=== PATIENT | male | born 1980 | race Caucasian/White ===

== ENCOUNTER → 2016-12-26 | Outpatient (CLI) | payer BC ==
--- NOTE | 2016-12-26 13:53 | XR ---
2 view abdomen HISTORY: Constipation 2 views of the abdomen on 3 images. 2 views the abdomen on 3 images There is a spinal curvature. No bowel obstruction or pneumoperitoneum. Lung bases are clear. IMPRESSION: No acute abnormality.
== END ==
LOC: RADXRMAIN 13:06
PROVIDERS: ATTEND Pediatrics
DX: K59.00 Constipation, unspecified (principal)
CPT/HCPCS: 74020

== ENCOUNTER 2017-02-04 08:13 | Day surgery (SDC) | payer BC ==
[2017-02-04] MEDS ORDERED: LACTATED RINGERS 1,000 ML IV ONE (08:57)
[2017-02-04 09:05] VITALS: RESP 16; TEMP 97.7
[2017-02-04] MEDS ORDERED: PROPOFOL 10 MG/ML 20 ML VIAL IV ONE (09:19)
[2017-02-04] MEDS ORDERED: LIDOCAINE 1% INJ 10MG/ML (20 ML MDV) ONE (09:19)
--- NOTE | 2017-02-04 09:50 | P.PCN ---
Date of Procedure: 02/04/17 Procedure(s) Performed: Procedure: Total colonoscopy. Preoperative diagnosis: Change in bowel habits and intermittent rectal bleeding. Postoperative diagnosis: Exam within normal limits. Preparation: HalfLytely prep. Sedation: Was provided by anesthesia. Brief clinical history: The patient is a 56-year-old male who I have evaluated in the office regarding changes in his stools and intermittent rectal bleeding that he has had over the last year or so. He has frequent flat stools. No extraintestinal manifestations of inflammatory bowel disease. No family history of colon cancer at a young age. No definite dietary triggers. This would be his first colonoscopy. Procedure: With the patient on his left lateral decubitus position and after informed consent and adequate sedation, the perianal area was inspected and it did not show any fissures or fistulas. There were no masses felt on digital rectal examination. The Olympus CFQ 160L video colonoscope was then inserted in the rectum in the usual fashion and advanced to the cecum. The mucosa appeared healthy. No polyps or tumors were seen or any obvious diverticular disease. I retroflexed endoscope in the rectum before the endoscope was withdrawn. Low-grade internal hemorrhoids were noted but there was no bleeding. The patient tolerated the procedure well. Plan: The patient was reassured. Discussed dietary measures. Further plans can be made based on his course. I will keep you updated on his progress.
[2017-02-04 10:13] VITALS: BP 138/97; PULSE 81
== END 2017-02-04 11:03 | disposition home or self-care (01) ==
LOC: ORWHC2ENDO 08:13
DX: K64.8 Other hemorrhoids (principal); R19.4 Change in bowel habit
CPT/HCPCS: 45378; J2001; J2704

== ENCOUNTER → 2017-11-11 | Outpatient (CLI) | payer BC ==
--- NOTE | 2017-11-11 14:22 | US ---
EXAMINATION TYPE: US abdomen complete DATE OF EXAM: 11/11/2017 COMPARISON: NONE CLINICAL HISTORY: R10.9 ABD PAIN. EXAM MEASUREMENTS: Liver Length: 17.9 cm Gallbladder Wall: 0.2 cm CBD: 0.4 cm Spleen: 12.8 cm Right Kidney: 11.3 x 7.2 x 5.1 cm Left Kidney: 10.9 x 6.6 x 5.2 cm Patient of large body habitus with extensive overlying bowel gas. Technically difficult and limited s tudy. Pancreas: Obscured by bowel gas Liver: Increased attenuation, decreased visualization of vessels suggestive of fatty infiltrate, pos sible hepatomegaly Gallbladder: wnl, limited visualization Evidence for sonographic Malone's sign: no CBD: small portion visualized Spleen: wnl Right Kidney: somewhat limited visualization, portions visualized wnl Left Kidney: somewhat limited visualization, portions visualized wnl Upper IVC: wnl Abd Aorta: Mostly obscured by overlying bowel gas, portions visualized wnl The visualized liver is heterogeneously hyperechoic. Evaluation for focal masses is suboptimal due to the heterogeneity. The intrahepatic portion of the IVC and visualized abdominal aorta are within nor mal limits. There is no evidence of cholelithiasis. Common bile duct is unremarkable. The pancreas is obscured by overlying bowel gas on initial 2 images saved. The spleen is unremarkable. Kidneys are symmetric and free of hydronephrosis. No renal lesions are seen. IMPRESSION: Suboptimal study with likely fatty infiltration of liver. Suboptimal evaluation of pancre as noted. No significant acute finding otherwise seen to account for patient's symptoms of acute pain .
[2017-11-11 14:28] LABS: Basophils # (A) 0.1 k/uL (0-0.2); Basophils % (A) 1 %; Eosinophils # (A) 0.2 k/uL (0-0.7); Eosinophils % (A) 2 %; HCT 44.1 % (39.0-53.0); HGB 14.8 gm/dL (13.0-17.5); Lymphocytes # (A) 2.6 k/uL (1.0-4.8); Lymphocytes % (A) 34 %; MCH 29.7 pg (25.0-35.0); MCHC 33.5 g/dL (31.0-37.0); MCV 88.7 fL (80.0-100.0); Mean Platelet Volume 6.6; Monocytes # (A) 0.5 k/uL (0-1.0); Monocytes % (A) 7 %; Neutrophils # (A) 4.1 k/uL (1.3-7.7); Neutrophils % (A) 54 %; Platelet Count 217 k/uL (150-450); RBC 4.98 m/uL (4.30-5.90); RDW 12.5 % (11.5-15.5); WBC 7.6 k/uL (3.8-10.6)
[2017-11-11 14:52] LABS: ALT 42 U/L (21-72); AST 24 U/L (17-59); Albumin 4.1 g/dL (3.5-5.0); Alkaline Phosphatase 102 U/L (38-126); Amylase 74 U/L (30-110); Anion Gap 11 mmol/L; Blood Urea Nitrogen 14 mg/dL (9-20); Calcium 9.4 mg/dL (8.4-10.2); Carbon Dioxide 28 mmol/L (22-30); Chloride 104 mmol/L (98-107); Glucose 96 mg/dL (74-99); Lipase 159 U/L (23-300); Potassium 4.2 mmol/L (3.5-5.1); Sodium 143 mmol/L (137-145); Total Bilirubin 1.1 mg/dL (0.2-1.3); Total Protein 7.3 g/dL (6.3-8.2)
== END | disposition home or self-care (01) ==
LOC: RADUSWWP 13:27
PROVIDERS: ATTEND Pediatrics
DX: R10.9 Unspecified abdominal pain (principal)
CPT/HCPCS: 36415; 76700; 80053; 82150; 83690; 85025

== ENCOUNTER 2018-03-06 19:40 | Emergency (ER) | payer BC ==
[2018-03-06] MEDS ORDERED: SODIUM CHLORIDE 0.9% 1,000 ML IV STA (20:16)
--- NOTE | 2018-03-06 20:23 | ED ---
General Adult HPI - General Chief complaint: Recheck/Abnormal Lab/Rx Stated complaint: Rash Time Seen by Provider: 03/06/18 19:58 Source: patient, family Mode of arrival: ambulatory Limitations: no limitations - History of Present Illness Initial comments: Patient is a 37-year-old male presenting for left-sided chest pain and rash. Patient states that approximately 1.5 months ago, he was diagnosed with shingles and a low platelet count. He continued to have fatigue and then developed left-sided chest pain for the last 2 weeks. The pain is been intermittent and sharp with radiation straight to his back. There are no modifying factors he denies any fevers/chills as well as coughing. However, he admits to some shortness of breath as well as a rash on the lower extremities. He denies any occupational exposure as well as traveling to wooded areas or foreign countries. Pt also denies any prolonged periods of immobility, CA, DVT/ PE, estrogen use, or recent surgery. - Related Data Home Medications Medication Instructions Recorded Confirmed No Known Home Medications [No 03/06/18 03/06/18 Known Home Medications] Allergies Allergy/AdvReac Type Severity Reaction Status Date / Time No Known Allergies Allergy Verified 03/06/18 20:32 Review of Systems ROS Statement: Those systems with pertinent positive or pertinent negative responses have been documented in the HPI. Constitutional: Negative for chills, and fever. Positive for fatigue HENT: Negative for congestion. Respiratory: Negative for chest tightness, shortness of breath and wheezing. Negative for cough Cardiovascular: Negative for and palpitations. Positive for chest pain Gastrointestinal: Negative for abdominal pain. Negative for abdominal distention , diarrhea, nausea and vomiting. Genitourinary: Negative for dysuria. Musculoskeletal: Negative for back pain, neck pain and neck stiffness. Skin: Positive for rash and color change Neurological: Negative for dizziness, speech difficulty, weakness and light- headedness. Psychiatric/Behavioral: Negative for agitation and confusion. The patient is not nervous/anxious. ROS Other: All systems not noted in ROS Statement are negative. Past Medical History Past Medical History: No Reported History History of Any Multi-Drug Resistant Organisms: None Reported Past Surgical History: Adenoidectomy, Ear Surgery, Tonsillectomy Past Anesthesia/Blood Transfusion Reactions: No Reported Reaction Past Psychological History: No Psychological Hx Reported Smoking Status: Never smoker Past Alcohol Use History: None Reported Past Drug Use History: None Reported General Exam - General Exam Comments Initial Comments: Constitutional: Pt is oriented to person, place, and time. Pt appears well- developed and well-nourished. No distress. HENT: Head: Normocephalic and atraumatic. Eyes: EOM are normal. Neck: Normal range of motion. Neck supple. Cardiovascular: Normal rate, regular rhythm, S1 normal, S2 normal and normal heart sounds. Exam reveals no gallop and no friction rub. No murmur heard. Pulmonary/Chest: Effort normal and breath sounds normal. No tachypnea and no bradypnea. No respiratory distress. No wheezes or rales noted. Abdominal: Soft. Bowel sounds are normal. Pt exhibits no shifting dullness, no distension, no pulsatile liver, no fluid wave, no abdominal bruit and no ascites. There is no tenderness. There is no rigidity, no rebound, no guarding, no tenderness at McBurney's point and negative Malone's sign. Musculoskeletal: Normal range of motion. Neurological: Pt is alert and oriented to person, place, and time. No cranial nerve deficit. Skin: Skin is warm and dry. Petechial rash noted on the medial aspects of both feet Psychiatric: Pt has a normal mood and affect. Pt behavior is normal. Thought content normal. Limitations: no limitations Course Vital Signs 03/06/18 03/06/18 19:54 21:52 Temperature 98.9 F 97.7 F Pulse Rate 96 85 Respiratory 18 20 Rate Blood Pressure 170/104 161/101 O2 Sat by Pulse 97 95 Oximetry EKG Findings - EKG Comments: EKG Findings:: EKG shows normal sinus rhythm with a rate of 83 bpm, MI interval 148, QRS 82, QTC 413. There is no significant ST depressions or elevations and no evidence of [id number] Medical Decision Making - Medical Decision Making Laboratory studies showed that there was no significant leukocytosis and platelet count was measured at 64,000. D-dimer was also noted to be negative and EKG showed no significant findings such as ST depressions or elevations. Chest x-ray was noted to be negative for acute infiltrate and electrolytes are relatively within normal limits. Based on physical exam, there is concern for ITP. However, because the patient had no obvious bleeding and denied any history concerning for bleeding, it was felt that the patient could be safely discharged with close follow-up to hematology. Patient was advised to refrain from activities that would result in injury or bleeding. He was also advised to return to the emergency department promptly if he started to experience bleeding or symptoms such as melanotic stools or vomiting. Patient was agreeable to plan. - Lab Data Result diagrams: 03/06/18 20:23 03/06/18 20:23 Lab Results 03/06/18 03/06/18 03/06/18 Range/Units 20:23 20:23 20:23 WBC 11.1 H (3.8-10.6) k/uL RBC 5.43 (4.30-5.90) m/uL Hgb 15.6 (13.0-17.5) gm/dL Hct 45.4 (39.0-53.0) % MCV 83.5 (80.0-100.0) fL MCH 28.6 (25.0-35.0) pg MCHC 34.3 (31.0-37.0) g/dL RDW 12.4 (11.5-15.5) % Plt Count 64 L (150-450) k/uL Neutrophils % 59 % Lymphocytes % 31 % Monocytes % 6 % Eosinophils % 2 % Basophils % 1 % Neutrophils # 6.5 (1.3-7.7) k/uL Lymphocytes # 3.4 (1.0-4.8) k/uL Monocytes # 0.7 (0-1.0) k/uL Eosinophils # 0.2 (0-0.7) k/uL Basophils # 0.1 (0-0.2) k/uL Manual Slide Review Performed Large Platelets Present PT 10.3 (9.0-12.0) sec INR 1.1 (<1.2) APTT 26.1 (22.0-30.0) sec D-Dimer 0.21 (<0.60) mg/L FEU Sodium 143 (137-145) mmol/L Potassium 3.5 (3.5-5.1) mmol/L Chloride 107 (98-107) mmol/L Carbon Dioxide 23 (22-30) mmol/L Anion Gap 13 mmol/L BUN 20 (9-20) mg/dL Creatinine 0.80 (0.66-1.25) mg/dL Est GFR (CKD-EPI)AfAm >90 (>60 ml/min/1.73 sqM) Est GFR (CKD-EPI)NonAf >90 (>60 ml/min/1.73 sqM) Glucose 112 H (74-99) mg/dL Calcium 9.2 (8.4-10.2) mg/dL Magnesium 2.1 (1.6-2.3) mg/dL Total Bilirubin 0.7 (0.2-1.3) mg/dL AST 22 (17-59) U/L ALT 34 (21-72) U/L Alkaline Phosphatase 102 (38-126) U/L Total Protein 7.3 (6.3-8.2) g/dL Albumin 4.2 (3.5-5.0) g/dL Disposition Clinical Impression: Thrombocytopenia, Chest pain Disposition: HOME SELF-CARE Condition: Good Is patient prescribed a controlled substance at d/c from ED?: No Referrals: Tong Blake MD [Primary Care Provider] - 1-2 days Time of Disposition: 21:35
[2018-03-06 20:36] LABS: Basophils # (A) 0.1 k/uL (0-0.2); Basophils % (A) 1 %; Eosinophils # (A) 0.2 k/uL (0-0.7); Eosinophils % (A) 2 %; HCT 45.4 % (39.0-53.0); HGB 15.6 gm/dL (13.0-17.5); Lymphocytes # (A) 3.4 k/uL (1.0-4.8); Lymphocytes % (A) 31 %; MCH 28.6 pg (25.0-35.0); MCHC 34.3 g/dL (31.0-37.0); MCV 83.5 fL (80.0-100.0); Mean Platelet Volume 7.7; Monocytes # (A) 0.7 k/uL (0-1.0); Monocytes % (A) 6 %; Neutrophils # (A) 6.5 k/uL (1.3-7.7); Neutrophils % (A) 59 %; RBC 5.43 m/uL (4.30-5.90); RDW 12.4 % (11.5-15.5); WBC 11.1 k/uL (3.8-10.6)
[2018-03-06 20:47] LABS: ALT 34 U/L (21-72); AST 22 U/L (17-59); Albumin 4.2 g/dL (3.5-5.0); Alkaline Phosphatase 102 U/L (38-126); Anion Gap 13 mmol/L; Blood Urea Nitrogen 20 mg/dL (9-20); Calcium 9.2 mg/dL (8.4-10.2); Carbon Dioxide 23 mmol/L (22-30); Chloride 107 mmol/L (98-107); Glucose 112 mg/dL (74-99); Magnesium 2.1 mg/dL (1.6-2.3); Potassium 3.5 mmol/L (3.5-5.1); Sodium 143 mmol/L (137-145); Total Bilirubin 0.7 mg/dL (0.2-1.3); Total Protein 7.3 g/dL (6.3-8.2)
[2018-03-06 20:54] LABS: D-Dimer 0.21 mg/L FEU (<0.60); INR 1.1 (<1.2); Partial Thromboplastin Time 26.1 sec (22.0-30.0); Prothrombin Time 10.3 sec (9.0-12.0)
--- NOTE | 2018-03-06 21:03 | XR ---
EXAMINATION TYPE: XR chest 2V DATE OF EXAM: 03/06/2018 COMPARISON: NONE HISTORY: Chest pain TECHNIQUE: Frontal and lateral views of the chest are obtained. FINDINGS: Heart and mediastinum are normal. Lungs are clear. Diaphragm is normal. Bony thorax appear s normal. IMPRESSION: Normal chest
[2018-03-06 21:06] LABS: Large Platelets Present
[2018-03-06 21:07] LABS: Platelet Count 64 k/uL (150-450)
[2018-03-06 21:55] VITALS: BP 161/101; PULSE 85; RESP 20; TEMP 97.7
== END 2018-03-06 21:55 | disposition home or self-care (01) ==
LOC: EC 19:40
DX: D69.6 Thrombocytopenia, unspecified (principal); R07.9 Chest pain, unspecified; R06.02 Shortness of breath; M54.9 Dorsalgia, unspecified
CPT/HCPCS: 36415; 71046; 80053; 83735; 85025; 85379; 85610; 85730; 93005; 96360; 99283

== ENCOUNTER 2020-06-13 10:33 | Emergency (ER) | payer BC ==
[2020-06-13 10:37] VITALS: RESP 18
[2020-06-13] MEDS ORDERED: MORPHINE SULFATE 4 MG/ML SYRINGE IV STA (10:49)
[2020-06-13] MEDS ORDERED: SODIUM CHLORIDE 0.9% 1,000 ML IV STA ×2 (10:49)
[2020-06-13] MEDS ORDERED: KETOROLAC 15 MG/ML 1 ML VIAL IVP STA (10:49)
[2020-06-13] MEDS ORDERED: ONDANSETRON 4 MG/2 ML VIAL IVP STA (10:50)
--- NOTE | 2020-06-13 11:04 | ED ---
Abdominal Pain HPI - General Chief Complaint: Abdominal Pain Stated Complaint: kidney stones Time Seen by Provider: 06/13/20 10:39 Source: patient, RN notes reviewed, old records reviewed Mode of arrival: ambulatory Limitations: no limitations - History of Present Illness Initial Comments: patient's a 39-year-old male presents to the ER today for evaluation for bilateral flank pain. He reports it's been going on for 3 weeks. He reports a history of kidney stones. He did follow-up with a primary care doctor who prescribed and pain medication and that he is scheduled have a computed tomography scan tomorrow. He reports the pain was more severe last night he decided coming to the ER. He reports he is slightly constipated but denies any vomiting. He states that he has no fevers or chills. Reports it feels like a previous kidney stones but this time it now has been on both flanks. Patient denies any dysuria. - Related Data Home Medications Medication Instructions Recorded Confirmed Ibuprofen [Motrin] 800 mg PO Q8H PRN 06/13/20 06/13/20 Omeprazole 20 mg PO HS 06/13/20 06/13/20 Tamsulosin [Flomax] 0.4 mg PO DAILY 06/13/20 06/13/20 traMADol HCL 50 mg PO BID PRN 06/13/20 06/13/20 Allergies Allergy/AdvReac Type Severity Reaction Status Date / Time sulfamethoxazole Allergy Rash/Hives Verified 06/13/20 11:23 [From Bactrim] trimethoprim [From Bactrim] Allergy Rash/Hives Verified 06/13/20 11:23 Review of Systems ROS Statement: Those systems with pertinent positive or pertinent negative responses have been documented in the HPI. ROS Other: All systems not noted in ROS Statement are negative. Past Medical History Past Medical History: No Reported History Additional Past Medical History / Comment(s): kidney stones History of Any Multi-Drug Resistant Organisms: None Reported Past Surgical History: Adenoidectomy, Ear Surgery, Tonsillectomy Past Anesthesia/Blood Transfusion Reactions: No Reported Reaction Past Psychological History: No Psychological Hx Reported Smoking Status: Never smoker Past Alcohol Use History: Occasional Past Drug Use History: None Reported General Exam - General Exam Comments Initial Comments: 39-year-old male. Alert and oriented. No distress. Limitations: no limitations General appearance: alert, in no apparent distress Head exam: Present: atraumatic, normocephalic, normal inspection Eye exam: Present: normal appearance, PERRL, EOMI. Absent: scleral icterus, conjunctival injection, periorbital swelling ENT exam: Present: normal exam, mucous membranes moist Neck exam: Present: normal inspection Respiratory exam: Present: normal lung sounds bilaterally. Absent: respiratory distress, wheezes, rales, rhonchi, stridor Cardiovascular Exam: Present: regular rate, normal rhythm, normal heart sounds. Absent: systolic murmur, diastolic murmur, rubs, gallop, clicks GI/Abdominal exam: Present: soft, tenderness (minimal tenderness in bilateral groin area, and suprapubic tenderness.), normal bowel sounds. Absent: distended, guarding, rebound, rigid Extremities exam: Present: normal inspection, full ROM, normal capillary refill. Absent: tenderness, pedal edema, joint swelling, calf tenderness Back exam: Present: normal inspection Neurological exam: Present: alert Psychiatric exam: Present: normal affect, normal mood Skin exam: Present: warm, dry, intact, normal color. Absent: rash Course Vital Signs 06/13/20 10:34 Temperature 97.8 F Pulse Rate 88 Respiratory 18 Rate Blood Pressure 159/131 O2 Sat by Pulse 98 Oximetry Medical Decision Making - Medical Decision Making 31-year-old female presents to the ER today for evaluation for complaints of lower abdominal pain radiating to bilateral flanks for the past 3 weeks. Patient reports it feels like all previous kidney stones. He reports the pain was more severe last night he came to the ER for evaluation. He stated he has had no vomiting or nausea. He also complains of some mild constipation. He was seen by PCP who had scheduled a CAT scan tomorrow. Labs reviewed today and unremarkable. We did proceed with a CT without contrast woke for nephrolithiasis. The CT at this time is negative for acute process. No signs of hydroureter or hydronephrosis. Patient was informed of these results. He is quite certain follicle previous kidney stones. It refilled better after IV pain medication. He was prescribed Ultram by PCP. I discussed picking up Ultram for further pain medication and continuing Motrin. Advise close PCP follow-up. - Lab Data Result diagrams: 06/13/20 11:02 06/13/20 11:02 Lab Results 06/13/20 06/13/2006/13/20 Range/Units 11:02 11:02 11:02 WBC 14.7 H (3.8-10.6) k/uL RBC 5.24 (4.30-5.90) m/uL Hgb 15.6 (13.0-17.5) gm/dL Hct 46.0 (39.0-53.0) % MCV 87.8 (80.0-100.0) fL MCH 29.8 (25.0-35.0) pg MCHC 33.9 (31.0-37.0) g/dL RDW 12.6 (11.5-15.5) % Plt Count 219 (150-450) k/uL Neutrophils % 74 % Lymphocytes % 19 % Monocytes % 4 % Eosinophils % 2 % Basophils % 1 % Neutrophils # 10.8 H (1.3-7.7) k/uL Lymphocytes # 2.8 (1.0-4.8) k/uL Monocytes # 0.6 (0-1.0) k/uL Eosinophils # 0.2 (0-0.7) k/uL Basophils # 0.1 (0-0.2) k/uL Sodium 140 (137-145) mmol/L Potassium 4.0 (3.5-5.1) mmol/L Chloride 107 (98-107) mmol/L Carbon Dioxide 24 (22-30) mmol/L Anion Gap 9 mmol/L BUN 17 (9-20) mg/dL Creatinine 0.76 (0.66-1.25) mg/dL Est GFR (CKD-EPI)AfAm >90 (>60 ml/min/1.73 sqM) Est GFR (CKD-EPI)NonAf >90 (>60 ml/min/1.73 sqM) Glucose 107 H (74-99) mg/dL Calcium 9.2 (8.4-10.2) mg/dL Total Bilirubin 1.3 (0.2-1.3) mg/dL AST 25 (17-59) U/L ALT 24 (4-49) U/L Alkaline Phosphatase 96 (38-126) U/L Total Protein 7.2 (6.3-8.2) g/dL Albumin 4.1 (3.5-5.0) g/dL Amylase 71 (30-110) U/L Lipase 164 (23-300) U/L Urine Color Colorless Urine Appearance Clear (Clear) Urine pH 6.0 (5.0-8.0) Ur Specific [place] 1.003 (1.001-1.035) Urine Protein Negative (Negative) Urine Glucose (UA) Negative (Negative) Urine Ketones Negative (Negative) Urine Blood Negative (Negative) Urine Nitrite Negative (Negative) Urine Bilirubin Negative (Negative) Urine Urobilinogen <2.0 (<2.0) mg/dL Ur Leukocyte Esterase Negative (Negative) - Radiology Data Radiology results: report reviewed CT shows no acute abdominal pelvic process. No hydronephrosis or cholelithiasis. No inflammatory stranding of the urinary bladder. Disposition Clinical Impression: Flank pain, chronic Disposition: HOME SELF-CARE Condition: Good Instructions (If sedation given, give patient instructions): Flank Pain (ED) Additional Instructions: Please use medication as discussed. Please follow up with family doctor if sym ptoms have not improved over the next two days. Please return to the emergency room if your symptoms increase or worsen or for any other concerns. Is patient prescribed a controlled substance at d/c from ED?: No Referrals: Tong Blake MD [Primary Care Provider] - 1-2 days Time of Disposition: 12:14
[2020-06-13 11:17] LABS: Appearance,Urine Clear (Clear); Bilirubin,Urine Negative (Negative); Blood,Urine Negative (Negative); Color,Urine Colorless; Glucose,Urine (UA) Negative (Negative); Ketones,Urine Negative (Negative); Leukocyte Esterase,Urine Negative (Negative); Nitrite,Urine Negative (Negative); Protein,Urine Negative (Negative); Specific Gravity,Urine 1.003 (1.001-1.035); Urobilinogen,Urine <2.0 mg/dL (<2.0)
[2020-06-13 11:19] LABS: ALT 24 U/L (4-49); AST 25 U/L (17-59); African American GFR (CKD) >90 (>60 ml/min/1.73 sqM); Albumin 4.1 g/dL (3.5-5.0); Alkaline Phosphatase 96 U/L (38-126); Amylase 71 U/L (30-110); Anion Gap 9 mmol/L; Blood Urea Nitrogen 17 mg/dL (9-20); Calcium 9.2 mg/dL (8.4-10.2); Carbon Dioxide 24 mmol/L (22-30); Chloride 107 mmol/L (98-107); Glucose 107 mg/dL (74-99); Non-African American GFR(CKD) >90 (>60 ml/min/1.73 sqM); Sodium 140 mmol/L (137-145); Total Bilirubin 1.3 mg/dL (0.2-1.3); Total Protein 7.2 g/dL (6.3-8.2)
[2020-06-13 11:20] LABS: Basophils # (A) 0.1 k/uL (0-0.2); Basophils % (A) 1 %; Eosinophils # (A) 0.2 k/uL (0-0.7); Eosinophils % (A) 2 %; HGB 15.6 gm/dL (13.0-17.5); Lymphocytes # (A) 2.8 k/uL (1.0-4.8); Lymphocytes % (A) 19 %; MCH 29.8 pg (25.0-35.0); MCHC 33.9 g/dL (31.0-37.0); MCV 87.8 fL (80.0-100.0); Mean Platelet Volume 7.3; Monocytes # (A) 0.6 k/uL (0-1.0); Monocytes % (A) 4 %; Neutrophils # (A) 10.8 k/uL (1.3-7.7); Neutrophils % (A) 74 %; Platelet Count 219 k/uL (150-450); RBC 5.24 m/uL (4.30-5.90); RDW 12.6 % (11.5-15.5); WBC 14.7 k/uL (3.8-10.6)
--- NOTE | 2020-06-13 11:42 | CT ---
EXAMINATION TYPE: CT abdomen pelvis wo con DATE OF EXAM: 06/13/2020 COMPARISON: Abdominal radiograph 12/26/2016 HISTORY: bilateral flank pain, frequency of urination, history of prior stones CT DLP: 1065.4 mGycm Automated exposure control for dose reduction was used. TECHNIQUE: Helical acquisition of images was performed from the lung bases through the pelvis. CONTRAST: Performed without Oral Contrast and without intravenous contrast. FINDINGS: LUNG BASES: Normal. LIVER: Too small to characterize hepatic hypodense lesions, some of which appear to represent hepatic cysts. BILIARY SYSTEM: No intrahepatic or extrahepatic biliary ductal dilatation. PANCREAS: No peripancreatic inflammation. SPLEEN: Not enlarged. Splenule. ADRENALS: No nodule. KIDNEYS: No hydronephrosis or hydroureter. No calculi within the kidneys, ureters, or urinary bladder . BOWEL: No evidence of obstruction or thickening. PERITONEUM: No free air is visualized. No free fluid. Tiny fat-containing umbilical hernia. ADENOPATHY: No lymphadenopathy. PELVIS: Normal unenhanced appearance. VASCULATURE: No abdominal aortic aneurysm. MUSCULOSKELETAL: No acute osseous abnormality. IMPRESSION: No acute abdominopelvic process. No evidence of hydronephrosis or urolithiasis. No inflammatory stran ding of the urinary bladder.
[2020-06-13 12:17] VITALS: BP 144/92; PULSE 76
[2020-06-13 12:36] VITALS: TEMP 98.2
== END 2020-06-13 12:30 | disposition home or self-care (01) ==
LOC: EC 10:33
DX: G89.29 Other chronic pain (principal); R10.30 Lower abdominal pain, unspecified; K59.00 Constipation, unspecified; Z87.442 Personal history of urinary calculi; Z88.6 Allergy status to analgesic agent; Z88.2 Allergy status to sulfonamides; Z88.1 Allergy status to other antibiotic agents
CPT/HCPCS: 36415; 80053; 82150; 83690; 85025; 81003; 74176; 96374; 96375 ×2; 96361; 99285; J2270; J2405; J1885